=== PATIENT | male | born 1990 | race American Indian/Alaskan Native ===

== ENCOUNTER 2021-06-25 10:01 | Emergency (ER) | payer SELFPAY ==
--- NOTE | 2021-06-25 10:18 | Emergency Department Report ---
ED General Adult HPI - General Stated complaint: STROKE Time Seen by Provider: 06/25/21 10:16 - History of Present Illness Initial comments: Patient presented with an episode concerning for stroke for him. He was at work. He states that he has been working hard all day. He has not had anything to eat. He is not rested. He started having problems with tingling in both arms and hands. His hands started to spasm and tightening up. He had tingling around his face. He had chest tightness. Coworkers told him that they thought he might be about to have a stroke. He decided to go home. He was resting at home. Symptoms were abating, but did not resolve. He came here for evaluation. After he arrived here, his symptoms had completely returned to normal. He did not have any vomiting or diarrhea. There is no cough or congestion. He states he has never had symptoms like this before. There is no history of recent travel or trauma. He does admit that he has been working more than usual. He has been drinking more caffeine than usual. He has been drinking less water than usual. - Related Data Allergies Allergy/AdvReac Type Severity Reaction Status Date / Time No Known Allergies Allergy Unverified 06/25/21 10:02 ED Review of Systems ROS: Stated complaint: STROKE Other details as noted in HPI Comment: All other systems reviewed and negative Constitutional: denies: fever Eyes: denies: vision change ENT: denies: epistaxis Respiratory: denies: cough Cardiovascular: as per HPI Endocrine: denies: unexplained weight loss Gastrointestinal: denies: abdominal pain Genitourinary: denies: dysuria Musculoskeletal: denies: back pain Skin: denies: rash Neurological: as per HPI, paresthesias Hematological/Lymphatic: denies: easy bruising ED Past Medical Hx - Past Medical History Previous Medical History?: No - Family History Family history: no significant ED Physical Exam - General Limitations: No Limitations, Other (Pulse ox noted and normal at 98%) General appearance: alert, in no apparent distress - Head Head exam: Present: atraumatic, normocephalic - Eye Eye exam: Present: normal appearance, EOMI - ENT ENT exam: Present: normal orophraynx, normal external ear exam - Neck Neck exam: Present: normal inspection. Absent: meningismus - Respiratory Respiratory exam: Present: normal lung sounds bilaterally. Absent: respiratory distress - Cardiovascular Cardiovascular Exam: Present: regular rate, normal rhythm - Extremities Exam Extremities exam: Present: normal capillary refill - Back Exam Back exam: Present: full ROM - Neurological Exam Neurological exam: Present: alert, oriented X3, CN II-XII intact, normal gait. Absent: motor sensory deficit - Psychiatric Psychiatric exam: Present: normal affect, normal mood - Skin Skin exam: Present: warm, dry ED Course - Reevaluation(s) Reevaluation #1: 06/25/21 10:23 Patient was discharged ED Medical Decision Making - Medical Decision Making Patient presents with a hyperventilation syndrome including carpopedal spasm. There is no evidence of fever. He does not have ongoing symptoms. I do not believe this represents any kind of electrolyte or hypoglycemic episode. Patient does not have chest pain or shortness of breath. He has no evidence of palpitations. There is no evidence of dysrhythmia on exam. I do believe this was hyperventilation related to the symptoms he was having at work. He was discharged. Critical Care Time: No Critical care attestation.: If time is entered above; I have spent that time in minutes in the direct care of this critically ill patient, excluding procedure time. ED Disposition Clinical Impression: Hyperventilation syndrome Disposition: HOME / SELF CARE / HOMELESS Is pt being admited?: No Condition: Stable Instructions: Hyperventilation Additional Instructions: Drink plenty water including Gatorade. Return for problems. Follow-up with your regular doctor for recheck. When the symptoms start to occur again, rest and breathe slowly. Referrals: PRIMARY CARE, [Referring] - 3-5 Days ELIJAH PERLA MD [Staff Physician] - 3-5 Days
[2021-06-25 11:04] VITALS: BP 125/86
== END 2021-06-25 11:03 | disposition home or self-care (01) ==
LOC: ED 10:01
DX: F45.8 Other somatoform disorders (principal)
CPT/HCPCS: 99282